=== PATIENT | female | born 1985 | race Caucasian/White ===

== ENCOUNTER 2019-07-03 09:08 | Day surgery (SDC) | payer MEDICAID ==
[~2019-07-03] VITALS: Ht 160 cm; Wt 83.1 kg
[2019-07-03] VITALS (10 sets, daily range): BP systolic 113–132; BP diastolic 72–86; PULSE 70–77; RESP 16–24; Ht 160 cm; Wt 83.1 kg
[2019-07-03] MEDS ORDERED: CEFAZOLIN 1 GM/50 ML (PMX) 50 ML IVPB ONE (10:00)
[2019-07-03] MEDS ORDERED: SOD CHLORIDE 0.9% 1,000 ML IV SCH (10:00)
[2019-07-03] MEDS ORDERED: FENTAnyl 50 MCG/ML VIAL ONE (12:10)
[2019-07-03] MEDS ORDERED: CEFAZOLIN 1 GM INJ ONE (12:24)
[2019-07-03] MEDS ORDERED: DEXAMETHASONE 4 MG/ML 5 ML INJ ONE (12:29)
[2019-07-03] MEDS ORDERED: LIDOCAINE 2% (SDV) 5 ML INJ ONE (12:29)
[2019-07-03] MEDS ORDERED: PROPOFOL 20 ML ONE (12:29)
[2019-07-03] MEDS ORDERED: ONDANSETRON 4 MG INJ ONE (12:29)
[2019-07-03] MEDS ORDERED: HYDROCODONE/APAP (7.5/325) TAB PO PRN (13:00)
[2019-07-03] MEDS ORDERED: OXYCODONE/ACETAMINOPHEN (5/325) TAB PO PRN (13:30)
[2019-07-03] MEDS ORDERED: FENTAnyl 50 MCG/ML VIAL IV PRN ×2 (13:30)
[2019-07-03] MEDS ORDERED: ONDANSETRON 4 MG INJ IV PRN (13:30)
[2019-07-03] MEDS ORDERED: MEPERIDINE 25 MG INJ IV PRN (13:30)
[2019-07-03] MEDS ORDERED: HYDROmorphONE 1 MG/5 ML IV SYRINGE IV PRN ×2 (13:30)
== END 2019-07-03 15:10 | disposition home or self-care (01) ==
LOC: SDS 09:08
PROVIDERS: ATTEND Surgery Surgical Oncology
DX: N63.0 Unspecified lump in unspecified breast (principal)
CPT/HCPCS: 19120; 80053; 85025; 85610; 85730; J0690; J1100; J2405; J3010; Z7610; 88307